=== PATIENT | male | born 1965 | race Caucasian/White ===

== ENCOUNTER → 2018-11-01 10:25 | Outpatient (CLI) | payer OTHER, SELFPAY ==
[2018-11-01 10:53] LABS: Add Manual Diff / Slide Review NO; Basophils Absolute Auto 0 /uL (0-100); Basophils Percent Auto 0.3 % (0-2); Eosinophils Absolute Auto 100 /uL (0-450); Eosinophils Percent Auto 1.9 % (2-4); Hematocrit 45.2 % (41-53); Hemoglobin 15.8 g/dL (13.5-17.5); Lymphocytes Absolute Auto 2600 /uL (1100-4500); Lymphocytes Percent Auto 35.4 % (25-40); Mean Corpuscular HGB Conc 34.9 % (30-36); Mean Corpuscular Hemoglobin 30.8 PG (26-34); Mean Corpuscular Volume 88.2 fL (80-100); Monocytes Absolute Auto 900 /uL (0-900); Monocytes Percent Auto 11.6 % (3-14); Neutrophils Absolute Auto 3800 /uL (1500-7000); Neutrophils Percent Auto 50.8 % (50-75); Platelet Count 328 X10^3/uL (150-400); Red Blood Cell Count 5.12 X10^6/uL (4.5-5.9); Red Cell Distribution Width 12.5 % (11.6-14.8); White Blood Cell Count 7.4 X10^3/uL (4.5-11.0)
[2018-11-01 11:15] LABS: Cholesterol 168 mg/dL (140-199); HDL Cholesterol 30 mg/dL (40-60); LDL Cholesterol Calculated 63 mg/dL (<100); Lipase 70 U/L (23-300); Triglycerides 376 mg/dL (35-150)
[2018-11-01 11:31] LABS: Vitamin D 25 Hydroxy (D3) 25.5 ng/mL (30.0-100.0)
== END ==
PROVIDERS: PCP Student in an Organized Health Care Education/Training Program; Visit Provider Student in an Organized Health Care Education/Training Program
DX: E55.9 Vitamin D deficiency, unspecified (principal); E78.1 Pure hyperglyceridemia; I10 Essential (primary) hypertension; K57.90 Diverticulosis of intestine, part unspecified, without perforation or abscess without bleeding; R10.13 Epigastric pain
CPT/HCPCS: 36415; 80061; 82306; 83690; 85025

== ENCOUNTER → 2019-01-01 18:58 | Outpatient (CLI) | payer OTHER, SELFPAY | PROVIDERS: Family Provider Family Medicine; PCP Student in an Organized Health Care Education/Training Program; Visit Provider Physician Assistant | DX: R68.89 Other general symptoms and signs (principal) | CPT/HCPCS: 87400 ==

== ENCOUNTER → 2019-04-11 12:34 | Outpatient (CLI) | payer OTHER, SELFPAY ==
[2019-04-11 12:46] LABS: Bacteria Urine None Seen; RBC Urine None Seen (0-5/HPF); WBC Urine None Seen (0-5/HPF)
[2019-04-11 13:01] LABS: Appearance Urine UA CLEAR; Bilirubin Urine UA NEGATIVE (NEGATIVE); Color Urine UA YELLOW; Glucose Urine UA NEGATIVE (Negative); Ketones Urine UA NEGATIVE (NEGATIVE); Leukocyte Esterase Urine UA NEGATIVE (NEGATIVE); Nitrite Urine UA NEGATIVE (Negative); Occult Blood Urine UA NEGATIVE (Negative); Protein Urine UA NEGATIVE (Negative); Specific Gravity Urine UA 1.025 (1.000-1.035); Urobilinogen Urine UA 0.2 E.U./dL (0.2)
[2019-04-11 13:02] LABS: Culture Indicated Urine Cult Not Indicated; Urine Comments Microscopic Normal
== END ==
PROVIDERS: PCP Student in an Organized Health Care Education/Training Program; Visit Provider Student in an Organized Health Care Education/Training Program
DX: R30.0 Dysuria (principal)
CPT/HCPCS: 81001

== ENCOUNTER → 2020-09-26 15:57 | Outpatient (CLI) | payer OTHER, SELFPAY ==
[2020-09-26 16:06] LABS: Bacteria Urine None Seen; RBC Urine None Seen (0-5/HPF)
[2020-09-26 16:56] LABS: Appearance Urine UA CLEAR; Bilirubin Urine UA NEGATIVE (NEGATIVE); Color Urine UA YELLOW; Glucose Urine UA NEGATIVE (Negative); Ketones Urine UA NEGATIVE (NEGATIVE); Leukocyte Esterase Urine UA NEGATIVE (NEGATIVE); Nitrite Urine UA NEGATIVE (Negative); Occult Blood Urine UA NEGATIVE (Negative); Protein Urine UA NEGATIVE (Negative); Specific Gravity Urine UA 1.015 (1.000-1.035); Urobilinogen Urine UA 0.2 E.U./dL (0.2)
[2020-09-26 17:06] LABS: Culture Indicated Urine Cult Not Indicated; Squamous Epithelial Cell Urine 0-1 /HPF (0-5/HPF); WBC Urine 0-1/HPF (0-5/HPF)
== END ==
PROVIDERS: PCP Student in an Organized Health Care Education/Training Program; Referring Provider Student in an Organized Health Care Education/Training Program; Visit Provider Student in an Organized Health Care Education/Training Program
DX: R30.0 Dysuria (principal)
CPT/HCPCS: 81001

== ENCOUNTER → 2021-02-24 11:31 | Outpatient (CLI) | payer OTHER, SELFPAY ==
[2021-02-24 12:22] LABS: Add Manual Diff / Slide Review NO; Basophils Absolute Auto 0 /uL (0-100); Basophils Percent Auto 0.5 % (0-2); Eosinophils Absolute Auto 100 /uL (0-450); Eosinophils Percent Auto 1.8 % (2-4); Hematocrit 43.6 % (41-53); Hemoglobin 15.1 g/dL (13.5-17.5); Lymphocytes Absolute Auto 2700 /uL (1100-4500); Lymphocytes Percent Auto 35.1 % (25-40); Mean Corpuscular HGB Conc 34.6 % (30-36); Mean Corpuscular Hemoglobin 30.3 PG (26-34); Mean Corpuscular Volume 87.7 fL (80-100); Monocytes Absolute Auto 800 /uL (0-900); Monocytes Percent Auto 10.9 % (3-14); Neutrophils Absolute Auto 4000 /uL (1500-7000); Neutrophils Percent Auto 51.7 % (50-75); Platelet Count 308 X10^3/uL (150-400); Red Blood Cell Count 4.97 X10^6/uL (4.5-5.9); Red Cell Distribution Width 12.6 % (11.6-14.8); White Blood Cell Count 7.7 X10^3/uL (4.5-11.0)
[2021-02-24 12:30] LABS: Alanine Aminotransferase 23 IU/L (<50); Albumin 4.4 g/dL (3.5-5.0); Albumin Globulin Ratio 1.4 (1.0-2.8); Alkaline Phosphatase 56 U/L (38-126); Aspartate Aminotransferase 26 IU/L (17-59); BUN Creatinine Ratio 16.2 (6-22); Bilirubin Total 0.3 mg/dL (0.2-1.3); Blood Urea Nitrogen 12 mg/dL (9-20); C-Reactive Protein Quant < 0.5 mg/dL (<1.0); Calcium 9.9 mg/dL (8.4-10.2); Carbon Dioxide 24 mmol/L (22-32); Chloride 104 mmol/L (98-107); Creatine Kinase 62 U/L (55-170); Estimated Glomerular Filt Rate > 60.0 mL/min (>60); Globulin 3.1 g/dL (1.7-4.1); Glucose 93 mg/dL (70-100); HEMOLYSIS < 15 (0-50); Potassium 4.1 mmol/L (3.4-5.1); Sodium 137 mmol/L (137-145); Total Protein 7.5 g/dL (6.3-8.2)
[2021-02-24 12:48] LABS: Erythrocyte Sedimentation Rate 7 MM/HR (0-15)
[2021-02-26 19:36] LABS: ANA Screen, IFA Negative (.)
[2021-02-28 14:06] LABS: Thyroid Stimulating Hormone 2.09 uIU/mL (0.47-4.68)
== END ==
PROVIDERS: PCP Student in an Organized Health Care Education/Training Program; Referring Provider Student in an Organized Health Care Education/Training Program; Visit Provider Student in an Organized Health Care Education/Training Program
DX: M35.3 Polymyalgia rheumatica (principal)
CPT/HCPCS: 36415; 80053; 82550; 84443; 85025; 85651; 86038; 86140

== ENCOUNTER 2022-01-03 14:06 | Emergency (ER) | payer OTHER, SELFPAY ==
[2022-01-03] VITALS (8 sets, daily range): BP systolic 128–137; BP diastolic 88–100; PULSE 80–108; RESP 20; TEMP 36.6; O2SAT 96–98; BMI 27.3
--- NOTE | 2022-01-03 14:42 | ED_ITS ---
HPI - General Adult General Chief complaint: Abdominal Pain Stated complaint: Abd pain- bloody stool Time Seen by Provider: 01/03/22 14:31 Source: patient Mode of arrival: Ambulatory Limitations: no limitations History of Present Illness HPI narrative: Patient is a 56-year-old male here for evaluation of multiple episodes of diarrhea, bright red blood per rectum and left-sided abdominal discomfort. Is also having some nausea but no vomiting. Has had a duodenal ulcer in the past but that was many years ago. He is not currently on any reflux medication. He is not on any anticoagulation. Has had diverticulitis in the past but he states this feels somewhat different than that. No prior abdominal surgeries. Has not tried anything for symptoms prior to arrival. No fevers. Related Data Home Medications Medication Instructions Recorded Confirmed tolterodine 4 mg capsule,extended 4 mg PO DAILY 10/29/21 10/29/21 release 24 hr Previous Rx's Medication Instructions Recorded lisinopril 10 mg tablet 10 mg PO DAILY #90 tab 07/08/21 tramadol 50 mg tablet 50 mg PO Q6H PRN #120 tab 10/29/21 Allergies Allergy/AdvReac Type Severity Reaction Status Date / Time codeine [CODEINE] Allergy Severe RASH, Verified 01/03/22 14:20 RESPIRATORY DISTRESS Penicillins [PENICILLINS] Allergy Mild CHILDHOOD Verified 01/03/22 14:20 Review of Systems Constitutional Constitutional: Denies fever(s) Cardiovascular Cardiovascular: Denies chest pain and Denies dyspnea Respiratory Respiratory: Denies dyspnea Gastrointestinal Gastrointestinal: Reports as per HPI and Reports system reviewed and no additional complaints, except as documented Genitourinary Genitourinary: Reports system reviewed and no additional complaints, except as documented Musculoskeletal Musculoskeletal: Reports system reviewed and no additional complaints, except as documented Integumentary/Breasts Skin/Breast: Reports system reviewed and no additional complaints, except as documented Hematologic/Lymphatic On Anticoagulants: No Patient History Medical History Chronic back pain COVID-19 Diverticulitis (2011) Hyperlipidemia Hypertension PUD (peptic ulcer disease) (1995) Surgical History (Updated 06/28/18 @ 14:18 by Suly Saldana) History of esophagogastroduodenoscopy (EGD) (1995) History of tonsillectomy History of vasectomy Hx of colonoscopy (1995) Family History (Updated 06/28/18 @ 14:18 by Suly Saldana) Father Diabetes mellitus Lymphoma Mother Hemochromatosis Grandmother Brain tumor Social History Smoking Status: Former smoker Smoking Status: Former smoker alcohol intake frequency: holidays/special occasions only Substance Use Type: marijuana Exam Initial Vital Signs Initial Vital Signs: Vital Signs Temperature 97.9 F 01/03/22 14:17 Pulse Rate 108 H 01/03/22 14:17 Respiratory Rate 20 01/03/22 14:17 Blood Pressure 128/96 H 01/03/22 14:17 Pulse Oximetry 97 01/03/22 14:17 HENMT Head: normal to inspection and normocephalic Resp Effort & Inspection: normal respiratory effort Auscultation: clear to auscultation bilaterally Cardio Rate: regular rate Rhythm: regular rhythm GI Inspection: normal to inspection Palpation: soft, No firm, No guarding and tender (Left side abdomen) Back/Spine/Pelvis Back: No CVA tenderness Skin General: no rashes or lesions noted Neuro General: patient alert, patient awake, patient oriented x3 and moves all extremities Extrem General: normal to inspection Psych Appearance: grossly normal Course Orders Ordered: ED Orders 01/03/22 14:22 EKG-12 Lead Stat 01/03/22 14:51 CT abdomen pelvis w con Stat 01/03/22 14:54 Complete Blood Count AUTO DIFF Stat Comprehensive Metabolic Panel Stat Lipase Stat 01/03/22 16:34 Urine Microscopic Stat Vital Signs Vital signs: Vital Signs - 8 hr 01/03/22 14:17 01/03/22 14:34 01/03/22 15:00 Temperature 97.9 F Pulse Rate 108 H 98 H 98 H Respiratory Rate 20 Blood Pressure 128/96 H Pulse Oximetry 97 97 98 01/03/22 15:30 01/03/22 16:00 01/03/22 16:02 Temperature Pulse Rate 87 91 H 92 H Respiratory Rate Blood Pressure 134/100 H Pulse Oximetry 97 96 98 01/03/22 16:30 Temperature Pulse Rate 80 Respiratory Rate Blood Pressure 135/94 H Pulse Oximetry 98 Medical Decision Making Lab Data Lab results reviewed: Yes I reviewed the patient's lab results. Result diagrams: 01/03/22 14:54 01/03/22 14:54 Labs: Lab Results 01/03/22 01/03/22 01/03/22 Range/Units 14:54 14:54 16:34 WBC 18.1 H (4.5-11.0) X10^3/uL RBC 5.09 (4.5-5.9) X10^6/uL Hgb 15.8 (13.5-17.5) g/dL Hct 44.6 (41-53) % MCV 87.6 (80-100) fL MCH 31.0 (26-34) PG MCHC 35.4 (30-36) % RDW 12.6 (11.6-14.8) % Plt Count 334 (150-400) X10^3/uL Neut % (Auto) 81.6 H (50-75) % Lymph % (Auto) 10.2 L (25-40) % [place] % (Auto) 7.8 (3-14) % Eos % (Auto) 0.2 L (2-4) % Baso % (Auto) 0.2 (0-2) % Neut # (Auto) 51855 H (1194-9166) /uL Lymph # (Auto) 1800 (4741-3925) /uL [place] # (Auto) 1400 H (0-900) /uL Eos # (Auto) 0 (0-450) /uL Baso # (Auto) 0 (0-100) /uL Sodium 135 L (137-145) mmol/L Potassium 4.9 (3.4-5.1) mmol/L Chloride 101 (98-107) mmol/L Carbon Dioxide 26 (22-32) mmol/L BUN 13 (9-20) mg/dL Creatinine 0.79 (0.66-1.25) mg/dL Estimated GFR > 60.0 (>60) mL/min BUN/Creatinine Ratio 16.5 (6-22) Glucose 123 H (70-100) mg/dL Calcium 9.7 (8.4-10.2) mg/dL Total Bilirubin 1.0 (0.2-1.3) mg/dL AST 25 (17-59) IU/L ALT 22 (<50) IU/L Alkaline Phosphatase 41 (38-126) U/L Total Protein 7.9 (6.3-8.2) g/dL Albumin 4.6 (3.5-5.0) g/dL Globulin 3.3 (1.7-4.1) g/dL Albumin/Globulin Ratio 1.4 (1.0-2.8) Lipase 45 (23-300) U/L Urine RBC 0-1/hpf (0-5/HPF) Urine WBC 0-1/hpf (0-5/HPF) Ur Squamous Epith Cells 0-1 /hpf (0-5/HPF) Urine Bacteria None seen (None) Ur Culture Indicated? Cult not indicated Urine Dip Bedside Urine Glucose Negative Bedside Urine Bilirubin - Negative Bedside Urine Ketone - Negative Urine Specific [place] 1.015 Bedside Urine Occult Blood - Negative Bedside Urine pH 6.0 Bedside Urine Protein +/- 15 Bedside Urine Urobilinogen - Negative Bedside Urine Nitrite - Negative Bedside Urine Leukocytes - Negative Esterase Point of care testing: Urine Dip Bedside Urine Glucose Negative Bedside Urine Bilirubin - Negative Bedside Urine Ketone - Negative Urine Specific [place] 1.015 Bedside Urine Occult Blood - Negative Bedside Urine pH 6.0 Bedside Urine Protein +/- 15 Bedside Urine Urobilinogen - Negative Bedside Urine Nitrite - Negative Bedside Urine Leukocytes - Negative Esterase ECG Data Attestation: I personally reviewed and interpreted this ECG as follows: Interpretation: Sinus rhythm Ventricular rate 95 Left axis deviation Right bundle-branch block QRS 152 milliseconds QTC [address] T wave changes MDM Narrative Medical decision making narrative: Patient does have a leukocytosis however the rest of his labs are unremarkable. EKG is unremarkable. Does have left-sided abdominal tenderness. CT scan shows colitis but no signs of diverticulitis/abscess/perforation. Patient has not had any travel. No camping. No other sick contacts. I do feel that we should hold on any antibiotics as this potentially could be entero hemorrhagic E coli. I did discuss this with the patient. This is most likely self-limiting and will resolve on its own. We did discuss avoiding anti diarrheal medicines. He was given return precautions. He expressed understanding and agreement. Discharge Plan Departure Patient Disposition: Home Clinical Impression: Colitis, Rectal bleeding Instructions: DI for Colitis Activity Restrictions/Additional Instructions: I do recommend that you continue to take all of your medications as directed. I also recommend that you follow-up with your primary doctor to discuss when you should schedule a repeat colonoscopy. Return to the emergency department for any new or worsening symptoms. Prescriptions: No Action lisinopril 10 mg tablet 10 mg PO DAILY Qty: 90 3RF tolterodine 4 mg capsule,extended release 24hr 4 mg PO DAILY 0RF tramadol 50 mg tablet 50 mg PO Q6H PRN (Reason: pain) Qty: 120 5RF Rx Instructions: EXEMPT Referrals: Juventino Marc MD [Primary Care Provider] -
--- NOTE | 2022-01-03 14:51 | DI.CT.S_ITS ---
PROCEDURE: CT ABDOMEN PELVIS W CON INDICATIONS: Left-sided abdominal pain TECHNIQUE: After the administration of oral and IV contrast, axial sections were acquired from the lung bases to the pubic symphysis. Coronal and sagittal reformats were performed. For radiation dose reduction, the following was used: automated exposure control, adjustment of mA and/or kV according to patient size. COMPARISON: None. (Prior outside CT examinations from 2010 in 2011 are not available for review from the archive at the time of this dictation.) FINDINGS: Image quality: Excellent. Lung bases: Unremarkable. Heart: No significant findings. ABDOMEN: Liver: Diffuse fatty liver infiltration is noted. Mild fatty sparing can be seen adjacent to the gallbladder. The liver is normal in size and demonstrates no focal lesions. Gallbladder: Unremarkable. Biliary ducts: Unremarkable. Pancreas: Unremarkable. Spleen: Unremarkable. Adrenal Glands: Unremarkable. Kidneys and Ureters: Unremarkable. Stomach and Bowel: In this patient with this given history, scrutiny is given to left colon. Within the descending colon, there is moderate wall thickening with mild surrounding inflammatory change. No additional colonic wall thickening can be seen. No dilated loops of small bowel are seen. A normal appendix is seen. Peritoneum: No abscess is seen. No abnormal intraperitoneal fluid. No free air. Ventral Wall: No hernia. Abdominal Nodes: No retroperitoneal or mesenteric adenopathy by size criteria. Vessels: Aorta and inferior vena cava are normal in size. Note is made of tortuosity of the distal thoracic aorta. PELVIS: Pelvic Organs: Unremarkable. Bladder: Unremarkable. Pelvic Nodes: No enlarged lymph nodes. Miscellaneous: No inguinal hernias are seen. Bones: Unremarkable. IMPRESSION: Moderate wall thickening is seen throughout the descending colon, with surrounding inflammatory change. Please correlate with potential infectious and inflammatory causes of colitis. No findings of perforation or abscess can be seen. Incidental note is made of: Tortuosity of the distal thoracic aorta Fatty liver infiltration Normal appendix Dictated by: Popeye Kowalski M.D. on 01/03/2022 at 15:04 Approved by: Popeye Kowalski M.D. on 01/03/2022 at 15:08
[2022-01-03 15:04] LABS: Add Manual Diff / Slide Review NO; Basophils Absolute Auto 0 /uL (0-100); Basophils Percent Auto 0.2 % (0-2); Eosinophils Absolute Auto 0 /uL (0-450); Eosinophils Percent Auto 0.2 % (2-4); Hematocrit 44.6 % (41-53); Hemoglobin 15.8 g/dL (13.5-17.5); Lymphocytes Absolute Auto 1800 /uL (1100-4500); Lymphocytes Percent Auto 10.2 % (25-40); Mean Corpuscular HGB Conc 35.4 % (30-36); Mean Corpuscular Volume 87.6 fL (80-100); Monocytes Absolute Auto 1400 /uL (0-900); Monocytes Percent Auto 7.8 % (3-14); Neutrophils Absolute Auto 14800 /uL (1500-7000); Neutrophils Percent Auto 81.6 % (50-75); Platelet Count 334 X10^3/uL (150-400); Red Blood Cell Count 5.09 X10^6/uL (4.5-5.9); Red Cell Distribution Width 12.6 % (11.6-14.8); White Blood Cell Count 18.1 X10^3/uL (4.5-11.0)
[2022-01-03 15:37] LABS: Alanine Aminotransferase 22 IU/L (<50); Albumin 4.6 g/dL (3.5-5.0); Albumin Globulin Ratio 1.4 (1.0-2.8); Alkaline Phosphatase 41 U/L (38-126); Aspartate Aminotransferase 25 IU/L (17-59); BUN Creatinine Ratio 16.5 (6-22); Blood Urea Nitrogen 13 mg/dL (9-20); Calcium 9.7 mg/dL (8.4-10.2); Carbon Dioxide 26 mmol/L (22-32); Chloride 101 mmol/L (98-107); Estimated Glomerular Filt Rate > 60.0 mL/min (>60); Globulin 3.3 g/dL (1.7-4.1); Glucose 123 mg/dL (70-100); HEMOLYSIS < 15 (0-50); Lipase 45 U/L (23-300); Potassium 4.9 mmol/L (3.4-5.1); Sodium 135 mmol/L (137-145); Total Protein 7.9 g/dL (6.3-8.2)
[2022-01-03 16:45] LABS: Bacteria Urine None Seen; Culture Indicated Urine Cult Not Indicated; RBC Urine 0-1/HPF (0-5/HPF); Squamous Epithelial Cell Urine 0-1 /HPF (0-5/HPF); WBC Urine 0-1/HPF (0-5/HPF)
== END 2022-01-03 17:09 | disposition home or self-care (01) ==
PROVIDERS: Emergency Provider Emergency Medicine; PCP Student in an Organized Health Care Education/Training Program
DX: K52.9 Noninfective gastroenteritis and colitis, unspecified (principal); K62.5 Hemorrhage of anus and rectum; Z87.891 Personal history of nicotine dependence
CPT/HCPCS: 74177; 80053; 81003; 81015; 83690; 85025; 93005; 99284

== ENCOUNTER → 2022-03-15 10:05 | Outpatient (CLI) | payer OTHER, SELFPAY ==
[2022-03-15 12:11] LABS: COVID19 -Nasal RAPID Negative (Negative)
== END ==
PROVIDERS: PCP Student in an Organized Health Care Education/Training Program; Visit Provider Surgery
DX: Z01.812 Encounter for preprocedural laboratory examination (principal); Z20.822 Contact with and (suspected) exposure to COVID-19
CPT/HCPCS: 87635; C9803

== ENCOUNTER 2022-03-16 06:22 | Day surgery (SDC) | payer OTHER, SELFPAY ==
[2022-03-16] VITALS (11 sets, daily range): BP systolic 119–158; BP diastolic 74–99; PULSE 56–67; RESP 12–18; TEMP 36.2–36.6; O2SAT 95–100; BMI 25.0
--- NOTE | 2022-03-16 | PATH_ITS ---
[facility] Accession Number: [id number] . 01 Material submitted: . colon - TRANSVERSE COLON POLYP . 01 Clinical history: . DX COLONSCOPY HEMORRHAGE OF ANUS AND RECTUM . 01 Diagnosis: Transverse Colon Polyp: Tubular adenoma. MRV 03/18/2022 2013 Local . 01 Electronically signed: . Greer Lujan MD, Pathologist NPI- [id number] . 01 Gross description: . TRANSVERSE COLON POLYP: Received in formalin is 1 fragment(s) of olson, soft tissue measuring 0.3 x 0.2 x 0.1 cm submitted entirely in 1 cassette(s) /CPE 03/17/2022 0821 Local . 01 Pathologist provided ICD-10: K62.5, K63.5 . 01 CPT . 682015 Specimen Comment: A courtesy copy of this report has been sent to [phone] Performed at: 01 [facility] [address] [place] [address] [id number] MD Yo Handy MD Phone: [phone]
[2022-03-16] MEDS: LACTATED RINGERS 1,000 ML 200 ML IV (07:11)
--- NOTE | 2022-03-16 07:44 | PM.HP.1 ---
History of Present Illness History of Present Illness Date Patient Seen: 03/16/22 Time Patient Seen: 07:44 Chief complaint: DX COLONOSCOPY Narrative: 56-year-old man who was experiencing some intermittent bright red blood per rectum recently. His history of diverticulitis. He is currently feeling well no further bleeding. Describes very mild left lower quadrant discomfort occasionally. He had a previous colonoscopy 10 years ago which was normal. No personal or family history of intestinal malignancy. Patient History Medical History Chronic back pain COVID-19 Diverticulitis (2011) Hyperlipidemia Hypertension PUD (peptic ulcer disease) (1995) Surgical History History of esophagogastroduodenoscopy (EGD) (1995) History of tonsillectomy History of vasectomy Hx of colonoscopy (1995) Family & Social History Family History Father Diabetes mellitus Lymphoma Mother Hemochromatosis Grandmother Brain tumor Social History: household members spouse Tobacco & Substance use: Smoking Status Former smoker alcohol intake former alcohol intake frequency holiday/special occasion Substance Use Type marijuana Meds Home Medications and Allergies Home Medications Medication Instructions Recorded Confirmed Type lisinopril 10 mg tablet 10 mg PO DAILY #90 tab 07/08/21 03/16/22 Rx tolterodine 4 mg capsule,extended 4 mg PO DAILY 10/29/21 03/16/22 History release 24 hr tramadol 50 mg tablet 50 mg PO Q6H PRN #120 tab 10/29/21 03/16/22 Rx Allergies Allergy/AdvReac Type Severity Reaction Status Date / Time codeine [CODEINE] Allergy Severe RASH, Verified 03/16/22 07:14 RESPIRATORY DISTRESS Penicillins [PENICILLINS] Allergy Mild CHILDHOOD Verified 03/16/22 07:14 Exam Vital Signs (past 8 hours): - 03/16/22 07:19 Temperature 97.2 F L Pulse Rate 56 L Respiratory Rate 16 Blood Pressure 123/78 Pulse Oximetry 97 Oxygen Delivery Method Room Air Narrative Exam Narrative: GENERAL: Adult male in no apparent distress HEENT: No scleral icterus CV: Regular rate, no peripheral edema LUNGS: No increased work of breathing. Patient speaks in full sentences without oxygen support. ABDOMEN: Soft, non-tender, non-distended SKIN: Warm and dry Assessment & Plan Assessment & Plan narrative: The patient requires colorectal screening and colonoscopy is recommended. Technical details were discussed. Risks, benefits, alternatives explained. Risks including but not limited to myocardial infarction, aspiration, bleeding, pain, missed lesion, incomplete examination, need for further radiographic studies, colonic perforation, and need for major abdominal surgery were discussed. All questions were answered to their satisfaction, and they are in agreement with this plan. Time Spent With Patient Critical Care time: I spent a total of [] minutes of critical care time on this patient's care today; this time is exclusive of procedural time.
[2022-03-16] MEDS: fentaNYL 250 MCG/5 ML INJ 150 MCG IV (08:10)
[2022-03-16] MEDS: MIDAZOLAM 5 MG/5 ML VIAL 7 MG IV (08:11)
--- NOTE | 2022-03-16 08:14 | PM.OP.COLON ---
Operative Date/Time/Diagnoses Date of procedure: 03/16/22 Time of procedure: 08:14 Pre-op diagnosis: Rectal bleeding Post-op diagnosis: other (Colonic polyp, internal hemorrhoids) Procedure & Clinicians Study performed: Colonoscopy and polypectomy Same procedure as scheduled: Yes Indications: Rectal bleeding Surgeon: Tra Mariee Procedure Notes Procedure in detail: Medications: Conscious sedation using 7mg IV midazolam and 150mcg IV of fentanyl The history and physical was performed/updated and the patient is ASA class is 2. The procedure was discussed in detail with the patient. Potential risks complications including infection, bleeding, missed diagnosis, perforation, need for surgery, and were explained. Their questions were answered and informed consent was obtained. Patient was brought to the procedure room and placed standard monitoring equipment. The patient's vital signs were monitored continuously throughout the entire procedure. Prior to starting time-out was performed. The patient was placed in the left lateral recumbent position. Procedural sedation was administered. Examination began with a thorough inspection of the perianal area there was no evidence of fissures, fistulae, external hemorrhoids or cutaneous malignancy. The colonoscopy scope was then placed into the anal canal and was advanced to the cecum, which was identified by the ileocecal valve, the appendiceal orifice and the confluence of the taenia. The scope was then slowly withdrawn examining colon thoroughly in all directions, irrigating it of any residual stool. FINDINGS 1. Transverse colon 5 mm polyp removed with forceps 2. Internal hemorrhoids 3. Mild sigmoid diverticulosis The patient tolerated the procedure well. They will be discharged once criteria are met. The prep was of good/excellent quality. The withdrawl time was 8 minutes. The sedation time was 20 minutes. Specimen(s): other (Transverse colonic polyp) Complications: none Impression: Colonic polyp Post-procedure Recommendations: High fiber diet Plan for aftercare: Will notify with biopsy results Disposition: same day surgery
--- NOTE | 2022-03-16 09:01 | SUR.PREOP ---
informed dr. Mariee of pt's pain and Dr. Mariee in to see him and evaluate pain in phase 2. Pt states he just wants to sleep.
--- NOTE | 2022-03-16 09:13 | SUR.PHASEII ---
pt up to bathroom to pass gas and go to bathroom.
--- NOTE | 2022-03-16 10:04 | SUR.PHASEII ---
1000 Patient has been in the bathroom, passing flatus, belched up air. Dr. Mariee checked on patient and the patient told him he was doing ok (per Reshma Vaughn RN). Patient ambulated to his bed and got dressed. Sitting in chair and moaned from abdominal pressure. Encouraged to lay on his left side and pass air, which he is trying to do.
== END 2022-03-16 10:32 | disposition home or self-care (01) ==
PROVIDERS: PCP Student in an Organized Health Care Education/Training Program; Referring Provider Surgery; Visit Provider Surgery
PROC: 0DJD8ZZ Inspection of Lower Intestinal Tract, Via Natural or Artificial Opening Endoscopic (ICD-10-PCS; CPT 45378; principal; 2022-03-16 07:45)
DX: K62.5 Hemorrhage of anus and rectum (principal); K57.30 Diverticulosis of large intestine without perforation or abscess without bleeding; K64.8 Other hemorrhoids; D12.3 Benign neoplasm of transverse colon
CPT/HCPCS: 45380; 99152; J2250; J3010

== ENCOUNTER → 2022-04-15 13:56 | Outpatient (CLI) | payer OTHER, SELFPAY ==
--- NOTE | 2022-04-15 13:57 | DI.MRI.S_ITS ---
PROCEDURE: MR LUMBAR SPINE WO CON INDICATIONS: Low back pain with sciatica >10yrs TECHNIQUE: Noncontrast sagittal T1 spin echo and T2 fast echo, sagittal STIR, and T2 fast spin echo through the lumbar spine. In cases with scoliosis, additional coronal T2 fast spin echo may be performed. COMPARISON: [facility], , L-SPINE WITHOUT CONTRAST, 07/17/2009, 17:30. FINDINGS: Image quality: Excellent. Alignment and Curvature: There is normal bony alignment. Bone Marrow: Marrow is of normal overall signal. No acute vertebral body compression fractures. Spinal Cord: Conus medullaris terminates at the L1 level. Visualized cord demonstrates normal signal and size. Paraspinous Soft Tissues: No paravertebral masses. T12-L1, L1-2, L2-3: No significant disc bulging, spinal canal stenosis, or neural foraminal narrowing. L3-L4: Disc desiccation and mild loss of disc space height with small posterior annular fissure and mild circumferential disc bulging. Findings do not result in significant spinal canal stenosis or neural foraminal narrowing. L4-L5: Disc desiccation and mild loss of disc space height with circumferential disc bulging and mild bilateral facet hypertrophy. Findings result in mild narrowing of the bilateral neural foramina without significant spinal canal stenosis. L5-S1: Mild circumferential disc bulging and mild bilateral facet hypertrophy, which results in mild to moderate bilateral neural foraminal narrowing without significant spinal canal stenosis. IMPRESSION: [id number] degenerative disc disease and facet hypertrophy as described in detail in the body of the report. Findings result in multilevel mild to moderate neural foraminal narrowing. No high-grade spinal canal stenosis or severe neural foraminal narrowing. Findings have mildly progressed when compared to the MRI from 07/17/2009. Dictated by: Robert Fernandez M.D. on 04/15/2022 at 16:40 Approved by: Robert Fernandez M.D. on 04/15/2022 at 16:45
== END ==
PROVIDERS: PCP Student in an Organized Health Care Education/Training Program; Referring Provider Student in an Organized Health Care Education/Training Program; Visit Provider Student in an Organized Health Care Education/Training Program
DX: M51.16 Intervertebral disc disorders with radiculopathy, lumbar region (principal); M51.17 Intervertebral disc disorders with radiculopathy, lumbosacral region; M47.26 Other spondylosis with radiculopathy, lumbar region; M47.27 Other spondylosis with radiculopathy, lumbosacral region; M48.061 Spinal stenosis, lumbar region without neurogenic claudication; M48.07 Spinal stenosis, lumbosacral region; G89.29 Other chronic pain
CPT/HCPCS: 72148

== ENCOUNTER → 2022-09-30 08:52 | Outpatient (CLI) | payer OTHER, SELFPAY ==
[2022-09-30 09:31] LABS: Blood Urea Nitrogen 12 mg/dL (9-20); Calcium 8.9 mg/dL (8.4-10.2); Carbon Dioxide 24 mmol/L (22-32); Chloride 102 mmol/L (98-107); Estimated Glomerular Filt Rate > 60 mL/min (>60); Glucose 143 mg/dL (70-100); HEMOLYSIS < 15 (0-50); Potassium 3.9 mmol/L (3.4-5.1); Sodium 137 mmol/L (137-145)
[2022-09-30 10:02] LABS: Prostate Specific Antigen Scrn 1.23 ng/mL (0.1-4.0)
[2022-09-30 17:36] LABS: Hep C Virus Ab w/Reflex Quant NEGATIVE s/c (NEGATIVE)
== END ==
PROVIDERS: PCP Student in an Organized Health Care Education/Training Program; Referring Provider Student in an Organized Health Care Education/Training Program; Visit Provider Student in an Organized Health Care Education/Training Program
DX: I10 Essential (primary) hypertension (principal); Z12.5 Encounter for screening for malignant neoplasm of prostate; Z11.59 Encounter for screening for other viral diseases
CPT/HCPCS: 36415; 80048; 86803; G0103